=== PATIENT | male | born 1990 | race Caucasian/White ===

== ENCOUNTER 2023-03-08 12:32 | Emergency (ER) | payer SELFPAY ==
[2023-03-08 12:33] VITALS: BP 132/89; PULSE 73; RESP 18; TEMP 36.8; O2SAT 100; BMI 26.3
--- NOTE | 2023-03-08 15:14 | EKG12_ITS ---
Test Reason : GENERAL Blood Pressure : / mmHG Vent. Rate : 061 BPM Atrial Rate : 061 BPM P-R Int : 134 ms QRS Dur : 090 ms QT Int : 402 ms P-R-T Axes : 051 069 061 degrees QTc Int : 404 ms Sinus rhythm with marked sinus arrhythmia Otherwise normal ECG Confirmed by JANENE BUNN, CORNELIO ([id number]), order editor JENNIFER CARVAJAL ([id number]) on 03/09/2023 2:25:24 PM Referred By: Confirmed By:CORNELIO WATTERS MD
--- NOTE | 2023-03-08 15:15 | EX.ED.DYSGE1 ---
HPI History of Present Illness Chief Complaint: General Illness Informant: patient Narrative Narrative: Patient presents with multiple complaints that been going on for several years. He believes he had COVID in mid 2019 before COVID was really a recognized illness. He had cough and congestion with increased phlegm that did not improve after 2 rounds of antibiotics. Since that time he continues to have shortness of breath with increased phlegm. He has an albuterol inhaler to use as needed. He states he also has chronic nausea and was given Zofran which has not helped. He states he is a very poor appetite and will go up to 24 hours without eating. He states when he does try to eat he gets very nauseated. He does not specifically have abdominal pain. He states there will then be other periods of time where he is extremely hungry and will eat everything that he can get his hands on for a few days before he loses his appetite again. He does report some intermittent urinary symptoms where he will get hot to urine and some burning. He has been seen by urology in the past and was scheduled to go back in for a scope which she did not follow-up with. He reports a soft mass in his right upper abdomen that has been told was likely a lipoma. He states over the past several days he was having spasms in this area. He states over the past 4 to 5 days he has had some intermittent chest pain and feels like his hands are shaky. Patient has recently quit smoking but states he is using nicotine patches. He does admit that he has had increased alcohol use which she has been trying to taper off of. PFSH PFS Medical History Anxiety COVID-19 Smoking history Allergy/AdvReac Type Severity Reaction Status Date / Time No Known Allergies Allergy Verified 03/08/23 12:36 Social History Smoking Status: Former smoker ROS ROS ED Constitutional Constitutional ED: Denies chills or fever(s) Eyes Eyes: Denies change in vision or discharge from eye(s) ENT ENT ED: Denies discharge from eye(s), rhinorrhea or sore throat Cardiovascular Cardiovascular: Reports chest pain and palpitations Respiratory/Chest Respiratory/Chest: Reports cough and dyspnea Gastrointestinal Gastrointestinal: Reports abdominal pain and nausea; Denies diarrhea or vomiting Genitourinary Genitourinary ED: Reports dysuria Musculoskeletal Musculoskeletal: Denies back pain or extremity pain Integumentary Denies Abrasions or rash Neurologic Neurologic: Reports paresthesias; Denies headache(s) or weakness Psychiatric Psychiatric: Denies anxiety or depression Allergic/Immunologic Allergic/Immunologic ED: Denies lip swelling or urticaria EXAM Physical Exam Const Vital Signs: 03/08/23 12:33 03/08/23 14:22 03/08/23 16:21 Temperature 98.3 F Temperature Source Temporal Pulse Rate 73 65 Respiratory Rate 18 12 Respiratory Effort Normal Respiratory Pattern Normal Blood Pressure 132/89 H 115/64 Blood Pressure Mean 103 81 Pulse Ox 100 97 Oxygen Delivery Method Room Air Room Air Positive well nourished and well developed General Appearance ED: well developed HEENT Reports moist mucous membranes Eyes EOMs intact bilaterally Neck no lymphadenopathy Chest Wall inspection of chest normal and palpation of chest normal Resp normal respiratory effort and clear to auscultation bilaterally Cardio regular rate and regular rhythm GI normal to inspection, nondistended, normoactive bowel sounds and non-tender Extremity normal to inspection Neuro oriented x3 and no sensory deficits noted Motor Exam: strength 5/5 throughout Psych mental status grossly normal Skin no rashes or lesions noted MDM MDM MDM Narrative Medical decision making narrative: Patient placed on desk monitor. EKG obtained to evaluate for cardiac arrhythmia/ischemia. Chest x-ray obtained to evaluate for acute lung pathology, cardiac size, or mediastinal abnormality. Labwork obtained to evaluate for leukocytosis, anemia, and electrolyte derangement. History & Record Review Discussion w/independent historian: Patient and Family Lab Data Labs: Laboratory Results - last 24 hr 03/08/23 15:30 WBC 7.1 RBC 4.95 Hgb 15.3 Hct 45.7 MCV 92.3 MCH 30.9 MCHC 33.5 RDW Std Deviation 40.9 RDW Coeff of [place] 12.0 Plt Count 326 MPV 8.3 Immature Gran % (Auto) 0.100 Neut % (Auto) 69.9 Lymph % (Auto) 18.7 L [place] % (Auto) 8.3 Eos % (Auto) 2.4 Baso % (Auto) 0.6 Absolute Neuts (auto) 4.9 Absolute Lymphs (auto) 1.32 Nucleated RBC % 0 Sodium 142 Potassium 4.0 Chloride 109 H Carbon Dioxide 28.0 Anion Gap 5 BUN 11 Creatinine 0.96 Estim Creat Clear Calc 116.57 Est GFR (MDRD) Af Amer 116 Est GFR (MDRD) Non-Af 96 BUN/Creatinine Ratio 11.5 Glucose 90 Calcium 9.3 Magnesium 2.5 Total Bilirubin 0.60 Direct Bilirubin 0.20 AST 20 ALT 38 Alkaline Phosphatase 42 L Troponin I High Sens < 3 L Total Protein 7.8 Albumin 4.4 Globulin 3.4 Lipase 17 TSH 2.95 Radiography Diagnostic Testing: Clinical Impression(s) from Imaging Studies Chest X-Ray 03/08/23 15:30 IMPRESSION: Normal x-ray examination of the chest. Electronically Signed: Elijah Randall MD at 15:50 EDT , EKG Initial EKG: Attestation: I personally reviewed and interpreted this EKG as follows: Interpretation: Sinus Rhythm (Sinus at 61 with no acute ischemia.) Treatment and Re-Evaluation :: CBC and chemistry studies are largely unremarkable. Chloride is slightly elevated at 109. LFTs are unremarkable. Troponin is less than 3. TSH is normal. Lipase is normal. Portable chest x-ray per my interpretation reveals no acute abnormalities. Radiology interpretation is reviewed and agrees. EKG reveals no ischemia. Test results are discussed with patient and family at bedside. While it is frustrating this does not give him any insight into his current complaints, reassurance is provided. I did recommend follow-up with primary care physician as well as GI. I recommended he may need to undergo scopes for possible IBS evaluation as well as potential 24-hour urine test to look at cortisol levels given his sudden rushes of adrenaline and anxiety. We discussed potentially starting the anxiety medicine that he had been prescribed previously. Return instructions are given. Discharge Plan Triage Chief Complaint: General Illness ED Provider: Lily Thomson Dx/Rx/DC Orders Clinical Impression: Paresthesias, Chest pain Instructions: ED Chest Pain, Noncardiac, ED Paraesthesias Primary Care Provider: Care Physician,No Primary Referrals: Oscar Acuna MD [Non-Staff] - Activity Restrictions/Additional Instructions: Discussed, please follow-up with your primary care physician at [facility]. He will likely need referral to GI as well as potential urology. Disposition Disposition: Home, Self Care
--- NOTE | 2023-03-08 15:30 | RAD_ITS ---
STUDY: X-RAY CHEST REASON FOR EXAM: Male, 32 years old. Cp TECHNIQUE: Single AP portable view of the chest. COMPARISON: None. FINDINGS: EKG electrodes are seen. The lungs are clear and expanded. There is no demonstrated pleural abnormality. Normal size heart. Normal mediastinum and vijay. Normal visualized pulmonary arteries. Normal visualized aortic arch and descending thoracic aorta. Normal visualized thoracic spine. Normal visualized ribs, clavicles, and shoulders. There is no demonstrated abnormality of the visualized soft tissue structures of the upper abdomen. RAD/Chest 1 View (Portable) IMPRESSION: Normal x-ray examination of the chest. Electronically Signed: Elijah Randall MD at 15:50 EDT ,
[2023-03-08 15:41] LABS: Absolute Lymphocyte Count 1.32 X10^3/uL (0.83-4.51); Absolute Neutrophil Count 4.9 X10^3/uL (2.0-7.7); Basophil# 0.04 X10^3/uL; Basophil% 0.6 % (0-1); Eosinophil# 0.17 X10^3/uL; Eosinophils% 2.4 % (0-5); Hematocrit 45.7 % (40-54); Hemoglobin 15.3 g/dL (13.0-16.5); Lymphocyte # 1.32 X10^3/ul (0.83-4.51); Lymphocyte % 18.7 % (19-41); Mean Corp Hgb Conc 33.5 g/dL (32-36); Mean Corpuscular Hgb 30.9 pg (27.0-32.0); Mean Corpuscular Volume 92.3 fL (80-94); Mean Platelet Vol. 8.3 fl (6.2-12.0); Monocyte# 0.59 X10^3/uL; Monocyte% 8.3 % (0-10); NRBC Flagged by Analyzer 0 % (0-5); Neutrophil # 4.94 X10^3/uL (2.7-7.7); Neutrophil % 69.9 % (47-70); Platelet Count 326 K/mm3 (150-450); RBC Distribution Width SD 40.9 fl (35.1-43.9); Red Blood Count 4.95 M/mm3 (4.6-6.2); White Blood Count 7.1 K/mm3 (4.4-11.0)
[2023-03-08 16:17] LABS: AST(SGOT) 20 U/L (15-37); Alanine Aminotransfer ALT/SGPT 38 U/L (16-61); Albumin, Serum 4.4 g/dL (3.2-5.0); Alkaline Phosphatase 42 U/L (45-117); Anion Gap 5 (5-15); BUN 11 mg/dL (7-18); BUN/Creat Ratio 11.5 RATIO (10-20); Calcium,Total 9.3 mg/dL (8.5-10.1); Chloride 109 mmol/L (98-107); Creatinine, Serum 0.96 mg/dL (0.70-1.30); EST Glomerular Filtration Rate 96 mL/min (>60); Est Glom Filt Rate - Afr Amer 116 mL/min (>60); Estimated Creatinine Clearance 116.57 ml/min; Globulin 3.4 g/dL (2.2-4.2); Glucose 90 mg/dL (74-106); Lipase 17 U/L (13-75); Magnesium 2.5 mg/dL (1.6-2.6); Protein, Total 7.8 g/dL (6.4-8.2); Sodium Level 142 mmol/L (136-145); Thyroid Stim Hormone (TSH) 2.95 uIU/mL (0.358-3.74); Troponin-I HS < 3 pg/mL (3.0-78.0)
[2023-03-08 16:21] VITALS: BP 115/64; PULSE 65; RESP 12; O2SAT 97
--- NOTE | 2023-03-08 17:00 | CM.ED ---
Social Work SW met with patient and patient's and introduced herself and role as [facility] Communications Equipment Installer. Patient agreeable to speak to SW with present. SW engaged patient in conversation regarding insurance, ADs and community resources. Patient reports no insurance as he recently lost Medicaid coverage and does not have advanced directives documents completed. SW reviewed community resources and information regarding advanced directives. Patient receptive towards information provided and reports no other needs. SW remains available if needs arise. Leidy Meadows FLOATING OPERATOR, PILAR
[2023-03-08 17:34] VITALS: BP 125/98; PULSE 76; RESP 14; O2SAT 98
== END 2023-03-08 17:36 | disposition home or self-care (01) ==
PROVIDERS: Emergency Provider Emergency Medicine; Visit Provider Emergency Medicine
DX: R20.2 Paresthesia of skin (principal); R07.9 Chest pain, unspecified; R11.0 Nausea; R06.02 Shortness of breath; R05.9 Cough, unspecified; Z87.891 Personal history of nicotine dependence
CPT/HCPCS: 71045; 80048; 80076; 83690; 83735; 84443; 84484; 85025; 93005; 99285; A4216